=== PATIENT | female | born 1980 | race Two or more races ===

== ENCOUNTER 2021-11-04 21:55 | Observation (INO) ==
[2021-11-04] MEDS ORDERED: SODIUM CHLORIDE 0.9% 1000ML 1,000 ML IV STA (22:10)
--- NOTE | 2021-11-04 22:13 | Emergency Department Note ---
Impression & Plan Elevated troponin ADMIT ED Provider Note HPI: The patient is a 41-year-old female who presents the emergency department with a chief complaint of hot flashes that have been intermittent throughout the day, also with mild/moderate headache today, patient states she is also had a sensation of some palpitations. States she is also had a cough. Denies any current chest pain, denies any nausea or vomiting, denies any abdominal pain or diarrhea. Patient does state that two nights ago she awoke from sleep with some right-sided chest discomfort, states it was relatively sharp in nature, states that it was transient, states that it has not been bothering her over the past 2 days. Patient does state that throughout the day today she has had a sensation in her chest as if her chest is "warm". She states it is not painful. On arrival here to the ED the patient is afebrile, she is hemodynamically stable, she is not tachycardic, she is saturating well on room air. ROS: -Cardio: Palpitations, transient chest discomfort -General: Hot flashes -Pulmonary: Cough -Neuro: Headache *10 point review systems was conducted and is otherwise negative unless stated above *Outpatient medications and allergy history reviewed PE: General: Alert, NAD HEENT: Normocephalic, atraumatic, full range of motion of the cervical spine is appreciated without pain/restriction Eyes: Extraocular eye movement is intact, no scleral erythema Pulmonary: Clear to auscultation bilaterally, no wheezing Cardio: Regular rate and rhythm GI: Abdomen is soft, nontender : No suprapubic tenderness MSK: No evidence of trauma or malformation of the extremities, no edema Skin: No evidence of rash Neuro: Alert, no focal deficits Psychiatric: Cooperative shampoo assistant: - An order was placed for continuous cardiac monitoring - Patient was noted to be in sinus rhythm with rate of 90 EKG: Rate: 73 Rhythm: Normal sinus rhythm Intervals: Within normal limits ST changes: No ST elevation Time: 2218 CTA CHEST: No acute pulmonary embolism visualized. No focal consolidation, pleural effusion or pneumothorax. Hepatomegaly and hepatic steatosis. Radiologist: Kenyatta Hoffman M.D. Medical Decision Making: Patient presented to the emergency department with multiple symptoms, she states that she has had some intermittent palpitations, states that she has had a cough, states that she has had a "warm" sensation in her chest that has been intermittent for the past several days.Patient also complains of a headache, states it is a pressure type sensation on the left side of her head. CT imaging of the head is unremarkable. IV was established, lab work obtained, EKG does not show any evidence of any tachyarrhythmia or ischemic changes, lab work was obtained and does not show any evidence of leukocytosis or left shift, patient is afebrile, have low suspicion for an infectious process as a source of the patient's headache. No critical electrolyte abnormalities are noted, magnesium is within normal limits, TSH is only slightly elevated at 5.6. Favoring migraine at this time for her headache. Lab work does show evidence of an elevated troponin of 0.05, unclear origin of this is the patient's renal function is within normal limits, she has not had any history of ACS, I did obtain CT angiography of the chest and this does not show any evidence of pulmonary embolism. Patient was given a dose of aspirin in the ED, she was given Reglan and Benadryl via IV for her headache, at this time given unclear origin of her elevated troponin with an abnormal sensation in her chest, I did discuss admission with the patient which I believe is advisable, patient is in agreement to this. Differential at this time would include ACS, myocarditis, among other pathologies. Hospitalist service was consulted for admission and the patient was admitted in stable condition for trending of troponin levels and further care. Diagnosis: 1. Elevated troponin 2. Abnormal chest sensation 3. Headache, nonspecific 4. Palpitations Disposition: ADMIT Boni Peña, DO Emergency Medicine Past Med/Surg History Medical History Adopted child Alpha thalassemia trait Fibroids Sensorineural hearing loss of both ears Vitamin D deficiency Surgical History H/O oral surgery Family History Mother Breast cancer Denies family history of Ovarian cancer Prostate cancer Myocardial infarction Colorectal cancer Social History Smoking Status: Never smoker Second Hand Exposure: Yes; Hx Alcohol Use: Yes Alcohol type: wine and hard liquor Alcohol Intake Frequenc y: 4 or More x per/Week Hx Substance Use: No Preferred Language: Malay Communication Ability: Effective Visual Impairment: No Limitations Hearing Ability: Normal marital status: Current Living Situation: Spouse current occupational status: employed Feels Safe at Home: Yes Childhood Exposure to Second-Hand Smoke: Yes Dental Care, Regularly: Yes Physical Activity Frequency: Does not Exercise Seatbelt Use: always Sunscreen Use: Yes Allergies Allergies Allergy/AdvReac Type Severity Reaction Status Date / Time No Known Allergies Allergy Verified 11/05/21 00:46 Home Meds Home Medications Medication Instructions Recorded Confirmed aspirin 500 mg tablet 500 mg PO BID PRN 11/05/21 11/05/21 Results & Data (ED) Vital Signs Vital Signs - 24 hr 11/04/21 22:00 11/04/21 22:10 11/04/21 22:48 Temperature 36.2 C L Temperature Source Temporal Artery Scan Pulse Rate 95 H 79 Pulse Rate [Radial] Pulse Rate from SpO2 Sensor Pulse Rhythm [Radial] Respiratory Rate 18 15 Respiratory Effort / Characteristics Non-Labored Respiratory Depth Normal Respiratory Pattern Regular Blood Pressure 140/93 105/64 Blood Pressure [Right Arm] Blood Pressure Mean 108 77 Blood Pressure Mean [Right Arm] Blood Pressure Position [Right Arm] Pulse Oximetry 99 96 Oxygen Delivery Method Room Air Sepsis Recent Fever Within 48 Hours No Sepsis New/Unexplained Change in Mental Status N/A Sepsis Action Taken by Nursing No Action Required 11/04/21 22:50 11/04/21 23:00 11/04/21 23:21 Temperature Temperature Source Pulse Rate 71 78 74 Pulse Rate [Radial] Pulse Rate from SpO2 Sensor Pulse Rhythm [Radial] Respiratory Rate 16 13 13 Respiratory Effort / Characteristics Respiratory Depth Respiratory Pattern Blood Pressure Blood Pressure [Right Arm] Blood Pressure Mean Blood Pressure Mean [Right Arm] Blood Pressure Position [Right Arm] Pulse Oximetry Oxygen Delivery Method Sepsis Recent Fever Within 48 Hours Sepsis New/Unexplained Change in Mental Status Sepsis Action Taken by Nursing 11/04/21 23:22 11/05/21 00:37 11/05/21 01:14 Temperature Temperature Source Pulse Rate 71 Pulse Rate [Radial] 88 Pulse Rate from SpO2 Sensor 72 Pulse Rhythm [Radial] Respiratory Rate 17 20 20 Respiratory Effort / Characteristics Non-Labored Non-Labored Respiratory Depth Normal Normal Respiratory Pattern Blood Pressure 125/80 Blood Pressure [Right Arm] 103/81 112/87 Blood Pressure Mean 95 Blood Pressure Mean [Right Arm] 88 95 Blood Pressure Position [Right Arm] Lying Lying Pulse Oximetry 99 100 99 Oxygen Delivery Method Room Air Room Air Sepsis Recent Fever Within 48 Hours Sepsis New/Unexplained Change in Mental Status Sepsis Action Taken by Nursing 11/05/21 01:42 Temperature Temperature Source Pulse Rate Pulse Rate [Radial] 78 Pulse Rate from SpO2 Sensor Pulse Rhythm [Radial] Regular Respiratory Rate 18 Respiratory Effort / Characteristics Non-Labored Respiratory Depth Normal Respiratory Pattern Blood Pressure Blood Pressure [Right Arm] 109/70 Blood Pressure Mean Blood Pressure Mean [Right Arm] 83 Blood Pressure Position [Right Arm] Lying Pulse Oximetry 99 Oxygen Delivery Method Room Air Sepsis Recent Fever Within 48 Hours Sepsis New/Unexplained Change in Mental Status Sepsis Action Taken by Nursing Laboratory Data Result diagrams: 11/04/21 22:27 11/04/21 22:27 Lab Results 11/04/21 11/04/21 11/04/21 Range/Units 22:27 22:27 22:27 WBC 10.84 H (4.8-10.8) K/uL RBC 4.27 (4.2-5.4) M/uL Hgb 10.8 L (12.0-16.0) g/dL Hct 35.0 L (37-47) % MCV 82.0 (80-100) fL MCH 25.3 (25-34) pg MCHC 30.9 L (32-36) g/dL RDW Std Deviation 43.8 (36.4-46.3) fL RDW Coeff of Marie 14.7 H (11.5-14.5) % Plt Count 337 (130-400) K/uL MPV 9.4 (7.4-10.4) fL Immature Gran % (Auto) 0.2 % Neut % (Auto) 67.8 % Lymph % (Auto) 24.4 % Creek % (Auto) 4.2 % Eos % (Auto) 3.0 % Baso % (Auto) 0.4 % Neut # (Auto) 7.36 H (1.4-6.5) K/uL Lymph # (Auto) 2.65 (1.2-3.4) K/uL Creek # (Auto) 0.45 (0.11-0.59) K/uL Eos # (Auto) 0.32 (0-0.5) K/uL Baso # (Auto) 0.04 (0-0.2) K/uL Immature Gran # (Auto) 0.02 (0.00-0.02) K/uL Sodium 134 L (136-145) mmol/L Potassium 3.9 (3.5-5.1) mmol/L Chloride 104 (98-107) mmol/L Carbon Dioxide 24 (21-32) mmol/L Anion Gap 6 (3-11) BUN 10 (6-23) mg/dl Creatinine 0.63 (0.6-1.2) mg/dl Est Cr Clr Drug Dosing 83.6 ml/min Est GFR ( Amer) 128.2 ml/min Est GFR (Non-Af Amer) 110.6 ml/min BUN/Creatinine Ratio 15.9 (10-20) Glucose 118 H (70-99(Fasting)) mg/dl Calcium 8.4 L (8.5-10.1) mg/dl Magnesium (1.7-2.4) mg/dl Total Bilirubin 0.3 (0.2-1.0) mg/dl AST 35 (13-39) U/L ALT 60 H (7-52) U/L Alkaline Phosphatase 76 (34-104) U/L Troponin I 0.05 H* (0-0.04) ng/ml Total Protein 7.4 (6.0-8.3) gm/dl Albumin 4.1 (3.4-5.0) gm/dl Globulin 3.3 (2.5-4.0) gm/dl Albumin/Globulin Ratio 1.2 (0.9-2) Lipase 31 (11-82) U/L Procalcitonin < 0.05 (0-0.5) ng/ml TSH (0.300-4.500) uIu/ml Urine Color Urine Appearance (Clear) Urine pH (4.5-7.5) Ur Specific [place] (1.000-1.030) Urine Protein (Negative) Urine Glucose (UA) (Negative) Urine Ketones (Negative) Urine Blood (Negative) Urine Nitrite (Negative) Urine Bilirubin (Negative) Urine Urobilinogen (Negative) Ur Leukocyte Esterase (Negative) SARS-CoV-2 (PCR) (Negative) Influenza Type A (PCR) (Neg) Influenza Type B (PCR) (Neg) RSV (RT-PCR) (Neg) 03/05/22 03/05/22 03/05/22 Range/Units 22:27 22:27 22:38 WBC (4.8-10.8) K/uL RBC (4.2-5.4) M/uL Hgb (12.0-16.0) g/dL Hct (37-47) % MCV (80-100) fL MCH (25-34) pg MCHC (32-36) g/dL RDW Std Deviation (36.4-46.3) fL RDW Coeff of Marie (11.5-14.5) % Plt Count (130-400) K/uL MPV (7.4-10.4) fL Immature Gran % (Auto) % Neut % (Auto) % Lymph % (Auto) % Creek % (Auto) % Eos % (Auto) % Baso % (Auto) % Neut # (Auto) (1.4-6.5) K/uL Lymph # (Auto) (1.2-3.4) K/uL Creek # (Auto) (0.11-0.59) K/uL Eos # (Auto) (0-0.5) K/uL Baso # (Auto) (0-0.2) K/uL Immature Gran # (Auto) (0.00-0.02) K/uL Sodium (136-145) mmol/L Potassium (3.5-5.1) mmol/L Chloride (98-107) mmol/L Carbon Dioxide (21-32) mmol/L Anion Gap (3-11) BUN (6-23) mg/dl Creatinine (0.6-1.2) mg/dl Est Cr Clr Drug Dosing ml/min Est GFR ( Amer) ml/min Est GFR (Non-Af Amer) ml/min BUN/Creatinine Ratio (10-20) Glucose (70-99(Fasting)) mg/dl Calcium (8.5-10.1) mg/dl Magnesium 2.0 (1.7-2.4) mg/dl Total Bilirubin (0.2-1.0) mg/dl AST (13-39) U/L ALT (7-52) U/L Alkaline Phosphatase (34-104) U/L Troponin I (0-0.04) ng/ml Total Protein (6.0-8.3) gm/dl Albumin (3.4-5.0) gm/dl Globulin (2.5-4.0) gm/dl Albumin/Globulin Ratio (0.9-2) Lipase (11-82) U/L Procalcitonin (0-0.5) ng/ml TSH 5.816 H (0.300-4.500) uIu/ml Urine Color Urine Appearance (Clear) Urine pH (4.5-7.5) Ur Specific [place] (1.000-1.030) Urine Protein (Negative) Urine Glucose (UA) (Negative) Urine Ketones (Negative) Urine Blood (Negative) Urine Nitrite (Negative) Urine Bilirubin (Negative) Urine Urobilinogen (Negative) Ur Leukocyte Esterase (Negative) SARS-CoV-2 (PCR) NEGATIVE (Negative) Influenza Type A (PCR) Negative (Neg) Influenza Type B (PCR) Negative (Neg) RSV (RT-PCR) Negative (Neg) 11/04/21 Range/Units 23:23 WBC (4.8-10.8) K/uL RBC (4.2-5.4) M/uL Hgb (12.0-16.0) g/dL Hct (37-47) % MCV (80-100) fL MCH (25-34) pg MCHC (32-36) g/dL RDW Std Deviation (36.4-46.3) fL RDW Coeff of Marie (11.5-14.5) % Plt Count (130-400) K/uL MPV (7.4-10.4) fL Immature Gran % (Auto) % Neut % (Auto) % Lymph % (Auto) % Creek % (Auto) % Eos % (Auto) % Baso % (Auto) % Neut # (Auto) (1.4-6.5) K/uL Lymph # (Auto) (1.2-3.4) K/uL Creek # (Auto) (0.11-0.59) K/uL Eos # (Auto) (0-0.5) K/uL Baso # (Auto) (0-0.2) K/uL Immature Gran # (Auto) (0.00-0.02) K/uL Sodium (136-145) mmol/L Potassium (3.5-5.1) mmol/L Chloride (98-107) mmol/L Carbon Dioxide (21-32) mmol/L Anion Gap (3-11) BUN (6-23) mg/dl Creatinine (0.6-1.2) mg/dl Est Cr Clr Drug Dosing ml/min Est GFR ( Amer) ml/min Est GFR (Non-Af Amer) ml/min BUN/Creatinine Ratio (10-20) Glucose (70-99(Fasting)) mg/dl Calcium (8.5-10.1) mg/dl Magnesium (1.7-2.4) mg/dl Total Bilirubin (0.2-1.0) mg/dl AST (13-39) U/L ALT (7-52) U/L Alkaline Phosphatase (34-104) U/L Troponin I (0-0.04) ng/ml Total Protein (6.0-8.3) gm/dl Albumin (3.4-5.0) gm/dl Globulin (2.5-4.0) gm/dl Albumin/Globulin Ratio (0.9-2) Lipase (11-82) U/L Procalcitonin (0-0.5) ng/ml TSH (0.300-4.500) uIu/ml Urine Color Yellow Urine Appearance Clear (Clear) Urine pH 6.0 (4.5-7.5) Ur Specific [place] 1.011 (1.000-1.030) Urine Protein Negative (Negative) Urine Glucose (UA) Negative (Negative) Urine Ketones Negative (Negative) Urine Blood Negative (Negative) Urine Nitrite Negative (Negative) Urine Bilirubin Negative (Negative) Urine Urobilinogen Negative (Negative) Ur Leukocyte Esterase Negative (Negative) SARS-CoV-2 (PCR) (Negative) Influenza Type A (PCR) (Neg) Influenza Type B (PCR) (Neg) RSV (RT-PCR) (Neg) Administered Medications Discontinued Medications Aspirin (Aspirin Chew 324 Mg) 324 mg PO NOW STA Stop: 11/05/21 01:09 Last Admin: 11/05/21 01:15 Dose: 324 mg Documented by: [id number] Diphenhydramine HCl (Diphenhydramine 50 Mg/Ml Vial) 25 mg IV NOW STA Stop: 11/05/21 01:34 Last Admin: 11/05/21 01:41 Dose: 25 mg Documented by: [id number] Sodium Chloride (Nss 1000ml) 1,000 mls @ 999 mls/hr IV .Q1H1M STA Stop: 11/04/21 23:10 Last Admin: 11/04/21 22:28 Dose: 999 mls/hr Documented by: [id number] Ioversol (Optiray 320 125ml) 120 ml IV ONCE ONE Stop: 11/05/21 00:17 Last Admin: 11/05/21 00:17 Dose: 120 ml Documented by: [id number] Metoclopramide HCl (Metoclopramide Hcl Inj 5 Mg/Ml 2 Ml Vial) 10 mg IV NOW STA Stop: 11/05/21 01:34 Last Admin: 11/05/21 01:40 Dose: 10 mg Documented by: [id number] Imaging Data Radiologist's Impression: Chest X-Ray 11/04/21 22:10 XR chest 1V portable CLINICAL HISTORY: Atypical chest pain TECHNIQUE: Single frontal radiograph of the chest was obtained. Comparison: None available at the time of this dictation. FINDINGS: No lines and tubes are seen. The cardiac silhouette is upper normal in size. Lungs are underinflated but clear. No evidence of pleural effusion or pn eumothorax. IMPRESSION: Lungs are underinflated but clear. No acute abnormalities are seen. ACT 112: Negative or not required by law. Electronically signed by: Mikey Lynn M.D. 11/04/2021 10:[address] 11/04/21 22:13 CT head/brain wo con CLINICAL HISTORY: RUSH Technique: Contiguous axial CT images of the head were acquired from the base of the skull to the vertex without intravenous contrast administration. Images were viewed in brain, subdural and bone windows. Automated dose lowering techniques and/or adjustment according to patient size were utilized for this exam. Comparison: Comparison is made to CT head 04/17/2021 Findings: The ventricles, basal cisterns, and cerebral sulci are normal. There is no acute intracranial hemorrhage or evidence of acute territorial infarction. Neither mass effect, shift of the midline structures, nor abnormal extra-axial fluid collections are shown. Imaged portions of the paranasal sinuses and mastoid air cells are clear. The orbits appear normal. There are no acute fractures of the calvaria or scalp swelling. Impression: No acute intracranial hemorrhage, no evidence of acute territorial infarction or other acute intracranial disease process. ACT 112: Negative or not required by law. Electronically signed by: Mikey Lynn M.D. 11/04/2021 11:16 PM Discharge Plan Visit Data Chief Complaint: Dizziness Stated Complaint: HOT FLASHES,DIZZY,RUSH ED Provider: Boni Peña Discharge Problem: Elevated troponin Forms Stand Alone Forms: [facility] [employer] Prescriptions Prescriptions: No Action aspirin 500 mg Tablet 500 mg PO BID PRN (Reason: Pain) RF: 0 Referrals Referrals: Greer Murray MD [Primary Care Provider] -
[2021-11-04 22:36] LABS: Basophils # (auto) 0.04 K/uL (0-0.2); Basophils % (auto) 0.4 %; Eosinophils # (auto) 0.32 K/uL (0-0.5); Hemoglobin 10.8 g/dL (12.0-16.0); Immature Granulocytes # (auto) 0.02 K/uL (0.00-0.02); Immature Granulocytes % (auto) 0.2 %; Lymphocytes # (auto) 2.65 K/uL (1.2-3.4); Lymphocytes % (auto) 24.4 %; Mean Corpuscular Hemoglobin 25.3 pg (25-34); Mean Corpuscular Hgb Conc 30.9 g/dL (32-36); Mean Platelet Volume 9.4 fL (7.4-10.4); Monocytes # (auto) 0.45 K/uL (0.11-0.59); Monocytes % (auto) 4.2 %; Neutrophils # (auto) 7.36 K/uL (1.4-6.5); Neutrophils % (auto) 67.8 %; Platelet Count 337 K/uL (130-400); RDW Coefficient of Variation 14.7 % (11.5-14.5); RDW Standard Deviation 43.8 fL (36.4-46.3); Red Blood Count 4.27 M/uL (4.2-5.4); White Blood Count 10.84 K/uL (4.8-10.8)
--- NOTE | 2021-11-04 22:37 | XRay Report ---
XR chest 1V portable CLINICAL HISTORY: Atypical chest pain TECHNIQUE: Single frontal radiograph of the chest was obtained. Comparison: None available at the time of this dictation. FINDINGS: No lines and tubes are seen. The cardiac silhouette is upper normal in size. Lungs are underinflated but clear. No evidence of pleural effusion or pneumothorax. IMPRESSION: Lungs are underinflated but clear. No acute abnormalities are seen. ACT 112: Negative or not required by law. Electronically signed by: Mikey Lynn M.D. 11/04/2021 10:36 PM
[2021-11-04 22:55] LABS: Albumin Globulin Ratio 1.2 (0.9-2); Albumin Level 4.1 gm/dl (3.4-5.0); BUN Creatinine Ratio 15.9 (10-20); Bilirubin,Total 0.3 mg/dl (0.2-1.0); Calcium 8.4 mg/dl (8.5-10.1); Creatinine Clr Calc Pharmacy 83.6 ml/min; Est GFR (African American) 128.2 ml/min; Est GFR (Non-African American) 110.6 ml/min; Globulin 3.3 gm/dl (2.5-4.0); Potassium 3.9 mmol/L (3.5-5.1); Total Protein 7.4 gm/dl (6.0-8.3)
[2021-11-04 22:59] LABS: Troponin I 0.05 ng/ml (0-0.04)
--- NOTE | 2021-11-04 23:17 | CT Scan Report ---
CT head/brain wo con CLINICAL HISTORY: RUSH Technique: Contiguous axial CT images of the head were acquired from the base of the skull to the leonardo marly without intravenous contrast administration. Images were viewed in brain, subdural and bone [facility] ws. Automated dose lowering techniques and/or adjustment according to patient size were utilized for this exam. Comparison: Comparison is made to CT head 04/17/2021 Findings: The ventricles, basal cisterns, and cerebral sulci are normal. There is no acute intracranial hemorrh age or evidence of acute territorial infarction. Neither mass effect, shift of the midline structures , nor abnormal extra-axial fluid collections are shown. Imaged portions of the paranasal sinuses and mastoid air cells are clear. The orbits appear normal. There are no acute fractures of the calvaria or scalp swelling. Impression: No acute intracranial hemorrhage, no evidence of acute territorial infarction or other acute intracra nial disease process. ACT 112: Negative or not required by law. Electronically signed by: Mikey Lynn M.D. 11/04/2021 11:16 PM
[2021-11-04 23:33] LABS: Appearance Urine Clear (Clear); Bilirubin Urine Negative (Negative); Blood Urine Negative (Negative); Color Urine Yellow; Glucose Urine UA Negative (Negative); Ketones Urine Negative (Negative); Leukocyte Esterase Urine Negative (Negative); Nitrite Urine Negative (Negative); Protein Urine Negative (Negative); Specific Gravity Urine 1.011 (1.000-1.030); Urobilinogen Urine Negative (Negative)
[2021-11-04 23:45] LABS: Influenza A virus by PCR Negative (Neg); Influenza B virus by PCR Negative (Neg); RSV by PCR Negative (Neg); SARS CoV2 RNA(COVID-19) InHosp NEGATIVE (Negative)
[2021-11-05] MEDS ORDERED: OPTIRAY 320 125ml IV ONE (00:16)
[2021-11-05] MEDS ORDERED: ASPIRIN CHEW 324 MG PO STA (01:08)
[2021-11-05] MEDS ORDERED: METOCLOPRAMIDE HCL INJ 5 MG/ML 2 ML VIAL IV STA (01:33)
[2021-11-05] MEDS ORDERED: diphenhydrAMINE 50 MG/ML VIAL IV STA (01:33)
[2021-11-05 01:39] LABS: Thyroid Stimulating Hormone 5.816 uIu/ml (0.300-4.500)
[2021-11-05 02:12] LABS: T4 Free Thyroxine 0.74 ng/dl (0.61-1.60)
[2021-11-05] MEDS ORDERED: NITROGLYCERIN SL 0.4 MG/TAB TAB SL PRN (02:30)
[2021-11-05] MEDS ORDERED: ACETAMINOPHEN 325 MG TAB PO PRN (02:30)
--- NOTE | 2021-11-05 02:45 | History & Physical Report ---
Date of Service November 05, 2021 Assessment & Plan (1) Acute myocarditis: Plan: Cele Sierra is a 41yo female with PMHx significant for moderate alcohol use disorder (8-10 drinks per week x4 years) who presented to [facility] ED on 11/05 due to acute onset of respiratory/GI viral symptoms - found to have elevated Troponin. Acute Myocarditis; Elevated Troponin Given acute onset of respiratory/GI symptoms consistent with viral illness, in addition to chest symptoms and elevated Troponin, suspect acute myocarditis. - EKG without ST/T changes and patient does not have chest pain - do not suspect ACS - Elevated Troponin likely due to demand ischemia in setting of myocarditis - CRP/ESR elevated - ordered Lyme IgM/IgG to r/o Lyme carditis - ordered TTE - s/p Aspirin 324mg x1 in ED, will not start Heparin as do not suspect ACS - PRN SL Nitro and EKG for chest pain - PRN Tylenol for pain/fever - trend CBC in AM Moderate Alcohol Use Disorder 8-10 drinks per week reported. - AWSS protocol with PRN Ativan IV - IV thiamine/folate ordered - counseled on cessation Chronic Normocytic Anemia Hgb 10.8 which is chronic baseline. Possibly due to chronic alcohol use vs DA. - cannot properly assess with iron profile given active illness - would recommend checking this at later time per PCP - trend CBC in AM - check folate/B12 Hepatic Steatosis;Hepatomegaly Findings per CTA chest. Suspect due to chronic alcohol use but cannot r/o infection. - ordered hepatitis panel an liver US - check PT/PTT/INR (no thrombocytopenia) Hyponatremia Na 134, was 141 in 04/22. Suspect hypovolemic hypotonic hyponatremia 2/2 dehydration in setting of acute illness. - s/p 1L NSS bolus in ED - trend in AM FEN/GI: regular diet DVT Prophylaxis: none - not indicated in this patient Code Status: full code Disposition: med/tele (2) Elevated troponin: (3) Viral illness: (4) Hepatomegaly: (5) Hepatic steatosis: (6) Normocytic anemia: (7) Moderate alcohol use disorder: (8) Hyponatremia: History of Present Illness Chief Complaint: dizziness Primary Care Provider: Greer Murray MD Cele Sierra is a 41yo female with PMHx significant for moderate alcohol use disorder (8-10 drinks per week x4 years) who presented to [facility] ED on 11/05 due to one day of subjective fever/chills, mild headache, generalized weakness, body aches, dry cough, diarrhea and a feeling of "wamrth over her chest" without ov ert pain. Patient denies ever having this "warm chest" feeling before. Denies personal h/o HTN, T2DM, heart disease or previous [place]. Denies rashes or tick bites. Patient denies recent positive sick contacts. She works from home and mostly just spends time with her . She is fully vaccinated for COVID-19 and had booster several months ago. Does report drinking "8-10" shots of whiskey per wee k, usually on the weekend, with her . In the ED patient was afebrile and hemodynamically stable on room air. Laboratory evaluation significant for Troponin of .05; EKG showed NSR without ST/T wave changes. WBC mildly elevated at 10.84 without neutrophilic predominance but without left shift. Hgb 10.8 (chronic baseline), normocytic. Na 134. COVID-19/RSV/influenza A/B negative. CXR did show upper-normal size of cardiac silhouette, mildly increased from CXR on 04/2021. CTA chest negative for PNA/PE/other pathology, and head CT negative for intracranial process. Of note CTA chest did show hepatomegaly and hepatic steatosis. Patient was given NSS 1L bolus, Metoclopramide 10mg IV x1, Benadryl 25mg IV x1, and Aspirin 324mg x1. Allergies Allergy/AdvReac Type Severity Reaction Status Date / Time No Known Allergies Allergy Verified 11/05/21 00:46 Home Medications Medication Instructions Recorded Confirmed Type aspirin 500 mg tablet 500 mg PO BID PRN 11/05/21 11/05/21 History colchicine 0.6 mg tablet 0.6 mg PO DAILY #90 tab 11/05/21 Rx Past Med/Surg History Medical History Adopted child Alpha thalassemia trait Fibroids Sensorineural hearing loss of both ears Vitamin D deficiency Surgical History H/O oral surgery Family History Mother Breast cancer Denies family history of Ovarian cancer Prostate cancer Myocardial infarction Colorectal cancer Social History Smoking Status: Never smoker Second Hand Exposure: Yes; Do You Dip or Chew Tobacco: No; Hx Alcohol Use: Yes Alcohol type: hard liquor Alcohol Intake Frequency: 4 or More x per/Week Hx Substance Use: No Preferred Language: Chinese Communication Ability: Effective Visual Impairment: No Limitations Hearing Ability: Normal Digital Advisor Required: No Beliefs That Will Affect Care: None marital status: Current Living Situation: Spouse and Family current occupational status: employed Other Information That Helps Us Care for You: No Feels Safe at Home: Yes Safety Concerns: Feels Safe At This Time Childhood Exposure to Second-Hand Smoke: Yes Dental Care, Regularly: Yes Physical Activity Frequency: Does not Exercise Seatbelt Use: always Sunscreen Use: Yes Assistive Devices: None Review of Systems Review of Systems: All systems reviewed & are unremarkable except as noted in HPI & below Physical Exam Physical Exam: General: A&Ox3. NAD. Cooperative. HEENT: Atraumatic, normocephalic. Pulm: CTAB A&P. -wheezes, -rales, -rhonchi. Symmetrical chest rise. No increase work of breathing. No respiratory distress. Cardiac: RRR, -mrg. Radial pulses intact and symmetrical. No JVD. No LE edema. Well-perfused. Abdominal: soft, non-tender, non-distended, BS x 4 Skin: warm, dry, no rash Results & Data Results & Data ([facility]) Vital Signs (Past 12 Hours) Vital Signs Temp Pulse Pulse Resp BP BP Pulse Ox 11/05/21 01:42 78 18 109/70 99 11/05/21 01:14 88 20 112/87 99 11/05/21 00:37 20 103/81 100 11/04/21 23:22 71 17 125/80 99 11/04/21 23:21 74 13 11/04/21 23:00 78 13 11/04/21 22:50 71 16 11/04/21 22:48 79 15 105/64 11/04/21 22:10 96 11/04/21 22:00 36.2 C L 95 H 18 140/93 99 Code Status & VTE Plan Code Status full code VTE Prophylaxis Plan VTE Prophylaxis will be ordered: No Supervising Physician Co-Signing Physician Notes Attending addendum: I have physically seen this patient, have supervised the medical residents activities, and agree with the H&P unless as otherwise noted. Assessment and Plan: Elevated troponin- The patient will be admitted to telemetry for serial cardiac enzymes, serial EKG's, cardiac rhythm monitoring and a 2-D echocardiogram with Dopplers. Most likely diagnosis is myocarditis, associated with patient's accompanying symptoms Lyme titers pending Given aspirin 324 mg in ED As needed's for nitroglycerin as noted Consult cardiology Alcohol use disorder- THA S protocol IV thiamine and folate Remaining orders and notations as noted Resident Activity Tracking Resident Involvement: Resident Care Provided Care Provided: Adult Hospital Medicine
[2021-11-05 02:51] LABS: Lyme Ab IgG w/WB Rflx Negative (Negative); Lyme Ab IgM w/WB Rflx Negative (Negative)
[2021-11-05] MEDS ORDERED: LORazepam 2 MG/1 ML VIAL IV PRN (03:50)
[2021-11-05 06:38] LABS: Basophils # (auto) 0.05 K/uL (0-0.2); Basophils % (auto) 0.5 %; Eosinophils # (auto) 0.32 K/uL (0-0.5); Eosinophils % (auto) 2.9 %; Hematocrit (blood only) 34.4 % (37-47); Hemoglobin 10.7 g/dL (12.0-16.0); Immature Granulocytes # (auto) 0.02 K/uL (0.00-0.02); Immature Granulocytes % (auto) 0.2 %; Lymphocytes # (auto) 2.26 K/uL (1.2-3.4); Lymphocytes % (auto) 20.8 %; Mean Corpuscular Hemoglobin 25.5 pg (25-34); Mean Corpuscular Hgb Conc 31.1 g/dL (32-36); Mean Corpuscular Volume 82.1 fL (80-100); Mean Platelet Volume 9.7 fL (7.4-10.4); Monocytes # (auto) 0.37 K/uL (0.11-0.59); Monocytes % (auto) 3.4 %; Neutrophils # (auto) 7.84 K/uL (1.4-6.5); Neutrophils % (auto) 72.2 %; Platelet Count 335 K/uL (130-400); RDW Coefficient of Variation 14.6 % (11.5-14.5); RDW Standard Deviation 43.4 fL (36.4-46.3); Red Blood Count 4.19 M/uL (4.2-5.4); White Blood Count 10.86 K/uL (4.8-10.8)
[2021-11-05 06:54] LABS: Albumin Level 3.8 gm/dl (3.4-5.0); BUN Creatinine Ratio 13.3 (10-20); Bilirubin,Total 0.4 mg/dl (0.2-1.0); Calcium 8.1 mg/dl (8.5-10.1); Creatinine Clr Calc Pharmacy 105.2 ml/min; Est GFR (African American) 130.3 ml/min; Est GFR (Non-African American) 112.4 ml/min; Magnesium 1.9 mg/dl (1.7-2.4); Potassium 3.8 mmol/L (3.5-5.1); Total Protein 6.8 gm/dl (6.0-8.3)
[2021-11-05 07:34] LABS: Partial Thromboplastin Ratio 0.9; Partial Thromboplastin Time 25.6 Seconds (21.0-31.0); Prothrombin Time 10.2 Seconds (9.0-12.0)
--- NOTE | 2021-11-05 08:25 | CT Scan Report ---
CT angio chest PE protocol CLINICAL HISTORY: Chest tightness. Evaluate for pulmonary embolus COMPARISON STUDY: Portable chest from 11/04/2021 CT DOSE: 235.35 mGy.cm TECHNIQUE: CT Angio of the chest was performed.followed by image post processing with coronal, and s agittal MIP reformats. Contrast Volume: Optiray 320, 120 ml FINDINGS: Vasculature: There is homogeneous perfusion of the pulmonary vasculature bilaterally. No intraluminal filling defects or evidence for pulmonary embolus is seen. Airway: The airway is clear. No endobronchial lesion is identified. Lungs: The lungs are clear of acute alveolar opacities, air bronchograms or pulmonary nodules. Pleura: There is no evidence for pleural effusion. There is no evidence for pneumothorax. Mediastinum: There is no evidence for pathologic adenopathy. The heart size is within normal limits. The thoracic aorta is within normal limits. There is no evidence for pericardial effusion. Upper abdomen:The adrenal glands are normal bilaterally. There is diffuse fatty infiltration of the l iver. Osseous structures: There is no acute osseous pathology. Impression: 1. No CTA evidence for pulmonary embolus. 2. No acute chest disease. ACT 112: Negative or not required by law. Electronically signed by: Conor Perry M.D. 11/05/2021 8:24 AM
[2021-11-05 08:43] LABS: Folate (Folic Acid) 15.28 ng/ml (>5.38)
[2021-11-05] MEDS ORDERED: FOLIC ACID 1 MG in SYRINGE 9.8 ML IV SCH (09:00)
[2021-11-05] MEDS ORDERED: THIAMINE HCL 100 MG in SYRINGE 9 ML IV SCH (09:00)
--- NOTE | 2021-11-05 09:29 | Ultrasound Report ---
US liver LIMITED ABDOMEN CLINICAL HISTORY: hepatomegaly. COMPARISON: None. TECHNIQUE: Multiple grayscale and color images of the right upper quadrant of the abdomen. FINDINGS: Pancreas: The pancreas is within normal limits with no focal mass or peripancreatic fluid collection identified. Liver: The liver is of normal size with increased echogenicity characteristic of fatty infiltration. There is no evidence for a focal mass. There is no intrahepatic biliary duct dilatation. Gallbladder: The gallbladder is partially contracted with no evidence of cholelithiasis, wall thicke zachary or pericholecystic edema. Common Bile Duct: (CBD): It is normal in size measuring 3 mm Inferior Vena Cava (IVC): The imaged IVC is patent. Right kidney: There is no evidence for hydronephrosis, calculus or gross renal mass. The kidney is n ormal in size. IMPRESSION: 1. Mild fatty infiltration of the liver with no evidence for hepatomegaly. ACT 112: Negative or not required by law. Electronically signed by: Conor Perry M.D. 11/05/2021 9:27 AM
--- NOTE | 2021-11-05 11:14 | XCELERA ---
[id number]
--- NOTE | 2021-11-05 14:30 | Discharge Summary ---
Date of Service November 05, 2021 Admission HPI Per Admitting Provider Cele Sierra is a 41yo female with PMHx significant for moderate alcohol use disorder (8-10 drinks per week x4 years) who presented to [facility] ED on 11/05 due to one day of subjective fever/chills, mild headache, generalized weakness, body aches, dry cough, diarrhea and a feeling of "wamrth over her chest" without overt pain. Patient denies ever having this "warm chest" feeling before. Denies personal h/o HTN, T2DM, heart disease or previous [place]. Denies rashes or tick bites. Patient denies recent positive sick contacts. She works from home and mostly just spends time with her . She is fully vaccinated for COVID-19 and had booster several months ago. Does report drinking "8-10" shots of whiskey per week, usually on the weekend, with her . In the ED patient was afebrile and hemodynamically stable on room air. Laboratory evaluation significant for Troponin of .05; EKG showed NSR without ST/T wave changes. WBC mildly elevated at 10.84 without neutrophilic predominance but without left shift. Hgb 10.8 (chronic baseline), normocytic. Na 134. COVID-19/RSV/influenza A/B negative. CXR did show upper-normal size of cardiac silhouette, mildly increased from CXR on 04/2021. CTA chest negative for P NA/PE/other pathology, and head CT negative for intracranial process. Of note CTA chest did show hepatomegaly and hepatic steatosis. Patient was given NSS 1L bolus, Metoclopramide 10mg IV x1, Benadryl 25mg IV x1, and Aspirin 324mg x1. Admission Exam Per Admitting Provider General: A&Ox3. NAD. Cooperative. HEENT: Atraumatic, normocephalic. Pulm: CTAB A&P. -wheezes, -rales, -rhonchi. Symmetrical chest rise. No increase work of breathing. No respiratory distress. Cardiac: RRR, -mrg. Radial pulses intact and symmetrical. No JVD. No LE edema. Well-perfused. Abdominal: soft, non-tender, non-distended, BS x 4 Skin: warm, dry, no rash Principal Diagnosis Myocarditis Discharge Exam Constitutional WD/WN, vitals as above Eyes PERRL, conjunctivae normal, anicteric sclerae Neck trachea midline, no thyromegaly Respiratory normal respiratory effort, lungs clear to auscultation Cardiovascular RRR, no murmur, no edema Gastrointestinal (Abdomen) normal bowel sounds, soft, nontender, no hepatosplenomegaly Musculoskeletal Head/Neck/Chest: normocephalic and head atraumatic Skin no rashes, warm and dry Neurologic moves all extremities Psychiatric A+Ox3, euthymic affect Discharge Data Allergies Allergy/AdvReac Type Severity Reaction Status Date / Time No Known Allergies Allergy Verified 11/05/21 00:46 Consultations 11/05/21 02:07 ED Decision to Admit Stat Ordered Studies 11/04/21 22:13 CT head/brain wo con Stat 11/04/21 23:16 CT angio chest PE protocol Urgent 11/05/21 02:45 liver Urgent Hospital Course (1) Acute myocarditis: Cele Sierra is a 41yo female with PMHx significant for moderate alcohol use disorder (8-10 drinks per week x4 years) who presented to [facility] ED on 11/05 due to acute onset of respiratory/GI viral symptoms - found to have elevated Troponin. Acute Myocarditis; Elevated Troponin Given acute onset of respiratory/GI symptoms consistent with viral illness, in addition to chest symptoms and elevated Troponin, suspect acute myocarditis. - EKG without ST/T changes and patient does not have chest pain - do not suspect ACS - Elevated Troponin likely due to demand ischemia in setting of myocarditis - CRP/ESR elevated - Lyme negative -TTE revealed no structural abnormalities. - s/p Aspirin 324mg x1 in ED, will not start Heparin as do not suspect ACS - PRN SL Nitro and EKG for chest pain - PRN Tylenol for pain/fever - trend CBC in AM, chronic anemia present -Sent patient home with 3-month course of colchicine 0.6 mg tablet once per day. Moderate Alcohol Use Disorder 8-10 drinks per week reported. - AWSS protocol with PRN Ativan IV - IV thiamine/folate ordered, both within normal limits - counseled on cessation Chronic Normocytic Anemia Hgb 10.8 which is chronic baseline. Possibly due to chronic alcohol use vs DA. - cannot properly assess with iron profile given active illness - would recommend checking this at later time per PCP - trend CBC in AM - check folate/B12, both within normal limits Hepatic Steatosis;Hepatomegaly Findings per CTA chest. Suspect due to chronic alcohol use but cannot r/o infection. - ordered hepatitis panel an liver US, pending at time of d/c. -PT/INR normal. -Care per primary care provider. Hyponatremia, resolved Na 134, was 141 in 04/22. Suspect hypovolemic hypotonic hyponatremia 2/2 dehydration in setting of acute illness. - s/p 1L NSS bolus in ED FEN/GI: regular diet DVT Prophylaxis: none - not indicated in this patient Code Status: full code Disposition: home (2) Elevated troponin: (3) Viral illness: (4) Hepatomegaly: (5) Hepatic steatosis: (6) Normocytic anemia: (7) Moderate alcohol use disorder: (8) Hyponatremia: Total Time Total Time Spent Total Time Spent (In Minutes): 30 Discharge Plan Discharge Items Patient Disposition: Home - Self-Care Reason For Visit: ELEVATED TROPONIN, ? MYOCARDITIS Discharge Diagnosis: Myocarditis Activity: Per Instructions section Non-emergency contact: Primary Care Provider Call non-emergency contact if: you have any medication questions, your symptoms worsen and your temperature is above 101.5 Follow-up/Referrals: Greer Murray MD [Primary Care Provider] - Diet: Regular Addtl Attending Provider Instructions: You were seen in the hospital for chest discomfort and general body aches. Af ter a work-up done in the ED and during her hospitalization, it was deemed that you have myocarditis likely secondary to a viral infection. While you were here imaging of your heart was performed and reviewed by our cattle sticker who found no abnormalities. At this time we feel that it is safe for you to be discharged in for you to resume your care at home. Colchicine, and medication to help with your myocarditis, was sent to your pharmacy. You are to take one 0.6 mg tablet once a day for 90 days. Incidentally, during her work-up, it is found that your liver did have fatty infiltrates and was slightly enlarged which is likely due to your history of alcohol use over the past 2 to 4 years. These changes are not likely to be permanent. With lifestyle modification and reduction or abstin ence from alcohol consumption, these changes in your liver could revert to normal over time. We recommend that you have follow-up with your primary care provider both for checking your myocarditis as well as further recommendations for your alcohol use within 1 week of discharge. Is been a pleasure to be a part of your care and we wish you the best in your health and to recovery. Pending Studies at Discharge: No Stand-Alone Forms: [facility], Smoking Cessation Medications and DC Order Prescriptions: New colchicine 0.6 mg tablet 0.6 mg PO DAILY Qty: 90 RF: 0 Continued aspirin 500 mg Tablet 500 mg PO BID PRN (Reason: Pain) RF: 0 Discharge Orders: Discharge Order (Routine); Ordered 11/05/21 Ordered By: Dillon Hernández/Other Patient Handouts: Colchicine Oral Tablet 0.6 mg Admission Data Admit Date/Time: 11/05/21 02:30 Attending Provider: Jhonny Armstrong Admit Provider: Ivan Garsia Primary Care Provider: Greer Murray Other Providers: Harry Wiseman Other Interventions: Discharge Summary Assessment (RN) Last Done: 11/05/21 14:11 Supervising Physician Co-Signing Physician Notes I personally examined the patient and verified all suarez points of history and exam, discussed case, and agree with decision making with Dr Beard feeling better wants to go home vitals noted nad heent nc at mmm breathing unlabored no accessory muscles good effort skin no rashes no pallor or icterus echo very reassuring, f/u trop normalized myocarditis - almost certainly post viral given myalgias, child sick w viral sx at home, etc -stable for home. colchicine. otherwise as above Resident Activity Tracking Resident Involvement: Resident Care Provided Care Provided: Adult Hospital Medicine
--- NOTE | 2021-11-05 16:11 | Billing Data ---
Date of Service November 05, 2021 Coding Level of Care Code 77932 OBS Care - Discharge
--- NOTE | 2021-11-05 22:37 | Billing Data ---
Date of Service November 05, 2021 Coding Level of Care Code INT OBSERVATION CARE 70M LVL 3
--- NOTE | 2021-11-06 06:45 | Electrocardiogram Report ---
Test Reason : Blood Pressure : / mmHG Vent. Rate : 073 BPM Atrial Rate : 073 BPM P-R Int : 132 ms QRS Dur : 080 ms QT Int : 408 ms P-R-T Axes : 042 022 020 degrees QTc Int : 449 ms Normal sinus rhythm Normal ECG When compared with ECG of 16-APR-2021 21:00, No significant change was found Confirmed by David Hogue ([id number]) on 11/06/2021 6:45:03 AM Referred By: REFERRED SELF Confirmed By:David Hogue
[2021-11-06 12:46] LABS: Hepatitis B Surf Ag Rflx Conf Neg (Neg); Hepatitis C IgG 13Yrs+Old_Rflx Neg (Neg)
[2021-11-07 03:42] LABS: Hepatitis A Antibody IgM NON-REACTIVE (NON-REACTIVE); Hepatitis B Core Antibody IgM NON-REACTIVE (NON-REACTIVE)
== END 2021-11-05 14:29 | disposition home or self-care (01) ==
LOC: 2N 21:55 → ED 21:55 → SUATTDRO 11-05 02:30 → 2N 11-05 03:12